=== PATIENT | male | born 1965 | race Caucasian/White ===

== ENCOUNTER 2017-04-01 07:58 | Day surgery (SDC) | payer OTHER ==
[2017-03-28 15:06] VITALS: BMI 35.7
[2017-04-01] MEDS ORDERED: oxyCODONE HCL 5 MG TABLET PO PRN (11:21)
[2017-04-01] MEDS ORDERED: ONDANSETRON 4 MG/2 ML VIAL IVPUSH PRN (11:21)
[2017-04-01] MEDS ORDERED: LACTATED RINGERS SOLUTION 1,000 ML IV SCH (11:30)
[2017-04-01] MEDS ORDERED: LEVOFLOXACIN 500 MG PREMIX BAG IVPB ONE (13:24)
[2017-04-01 15:07] VITALS: TEMP 98
--- NOTE | 2017-04-01 15:50 | OP ---
Operative Note - Note: Operative Date: 04/01/17 Pre-Operative Diagnosis: gross hematuria/positive FISH test Operation: cystoscopy/bilateral retrograde pyelogram/right ureteroscopy Findings: no evidence of neoplasm of bladder/ureters/pyelocalyceal system. 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
[2017-04-01 16:07] VITALS: BP 144/96; PULSE 65
--- NOTE | 2017-04-02 14:21 | OP ---
DATE OF OPERATION: 04/01/2017 PREOPERATIVE DIAGNOSIS: Gross hematuria with positive fluorescence in situ hybridization test. PROCEDURE: Cystoscopy, bilateral retrograde pyelogram, right ureteroscopy. POSTOPERATIVE DIAGNOSIS: Gross hematuria with positive fluorescence in situ hybridization test with a distal right ureteral stricture. ATTENDING: Erick Pham MD ANESTHESIA: General. DESCRIPTION OF PROCEDURE: The patient was brought in the operating room and placed in the supine position on the operating room table. General anesthesia was given as well as preoperative antibiotics. At this point, the patient was prepped and draped in the usual sterile manner in a dorsal lithotomy position. Cystoscopy was performed. Examination of the bladder showed no evidence of neoplasm or stones within the bladder. There was 1 to 2+ bladder trabeculation was noted with a moderate obstructive prostate. The left ureter was then intubated with an open-ended catheter. The open-ended catheter had difficulty due to J hooking of the left ureter due to benign prostatic hypertrophy. Eventually, the catheter was able to be manipulated into the distal left ureteral orifice, and a retrograde pyelogram showed no evidence of filling defects within the ureter or pyelocaliceal system of the left kidney. Attempt at intubating the right ureter were unsuccessful due to a distal ureteral stricture. Attempt at passing a wire into the ureter were also unsuccessful. Ureteroscopy was then performed, and a distal ureteroscope was placed into the distal ureteral orifice, and the stricture at the level of the bladder mucosa was dilated. Examination of the distal ureteral orifice showed no evidence of neoplasm within the ureter. ensure that the patient would not require a ureteral stent. It was decided to perform a retrograde pyelogram at this point through the ureteroscope. This was performed without complication, and there was no evidence of neoplasm within the ureter or right pyelocaliceal system was noted. At this point, the scope was removed. The patient's disposition was to the recovery room. No complication was noted. ERICK PHAM M.D. /[id number]
== END 2017-04-01 16:08 | disposition home or self-care (01) ==
LOC: JASU-SURG 07:58
PROVIDERS: ATTEND Urology
PROC: BT14YZZ Fluoroscopy of Kidneys, Ureters and Bladder using Other Contrast (ICD-10-PCS; principal; 2017-04-01 10:00)
PROC: 0TJ98ZZ Inspection of Ureter, Via Natural or Artificial Opening Endoscopic (ICD-10-PCS; 2017-04-01 10:00)
DX: N13.5 Crossing vessel and stricture of ureter without hydronephrosis (principal); N40.0 Benign prostatic hyperplasia without lower urinary tract symptoms; N32.89 Other specified disorders of bladder; R31.0 Gross hematuria
CPT/HCPCS: 76000-TC; 94760

== ENCOUNTER 2023-01-07 05:01 | Emergency (ER) | payer OTHER ==
[2023-01-07 05:12] VITALS: TEMP 97.7; BMI 34.9
[2023-01-07 06:42] LABS: BASO % 0.4 % (0-2.0); EOS % 1.8 % (0-4.5); HEMATOCRIT 43.8 % (35.4-49); HEMOGLOBIN 14.4 GM/dL (11.7-16.9); LYMPH % 20.8 % (8-40); MCH 29.7 pg (25.7-33.7); MCHC 32.8 g/dl (32.0-35.9); MEAN CELL VOLUME 90.7 fl (80-96); MEAN PLT VOLUME 9.5 fl (7.5-11.1); MONO % 7.3 % (3.8-10.2); NEUT % 69.7 % (42.8-82.8); PLATELET COUNT 164 10^3/uL (134-434); RBC 4.83 M/mm3 (4.00-5.60); RDW 13.5 % (11.9-15.9); WHITE BLOOD COUNT 7.8 K/mm3 (4.0-10.0)
[2023-01-07 06:51] LABS: INR 1.03 (0.83-1.09); PROTHROMBIN TIME (PATIENT) 11.9 SEC (9.7-13.0)
[2023-01-07 06:54] LABS: ACTIVATED PTT 25.3 SECONDS (25.2-36.5)
[2023-01-07 07:05] LABS: CALCIUM 8.7 mg/dL (8.5-10.1)
[2023-01-07 07:06] LABS: ALBUMIN 3.3 g/dl (3.4-5.0); BLOOD UREA NITROGEN 19.7 mg/dL (7-18)
[2023-01-07 07:09] LABS: CREATININE 1.1 mg/dL (0.55-1.3)
[2023-01-07 07:10] LABS: BILIRUBIN,TOTAL 0.8 mg/dL (0.2-1)
[2023-01-07] MEDS ORDERED: LACTATED RINGERS SOLUTION 1000 ML INFUS.BAG IV ONE ×2 (07:44→10:23)
[2023-01-07 12:10] VITALS: RESP 18
[2023-01-07 14:35] VITALS: BP 112/68; PULSE 85
== END 2023-01-07 15:20 | disposition home or self-care (01) ==
LOC: JER 05:01
DX: R55 Syncope and collapse (principal); I95.1 Orthostatic hypotension; M25.561 Pain in right knee; M54.2 Cervicalgia; R42 Dizziness and giddiness; R07.9 Chest pain, unspecified; W01.198A Fall on same level from slipping, tripping and stumbling with subsequent striking against other object, initial encounter; Y93.E1 Activity, personal bathing and showering; Y92.002 Bathroom of unspecified non-institutional (private) residence as the place of occurrence of the external cause
CPT/HCPCS: 36415; 70450-TC; 71045-TC-FY; 72125-TC; 73560-TC-RT-FY; 80053; 84484; 85025; 85610; 85730; 93005; 93010; 99285-25